=== PATIENT | female | born 1975 | race Asian ===

== ENCOUNTER 2020-07-23 10:43 | Inpatient (IN) | payer OTHER ==
[~2020-07-23] VITALS: Ht 160 cm; Wt 61.4 kg
[2020-07-23] MEDS ORDERED: HYDROmorphone 2 MG/ML SYRINGE IVP ONE (11:00)
[2020-07-23] MEDS ORDERED: RINGERS SOLUTION,LACTATED 1,000 ML IV ONE ×3 (11:21→11:50)
[2020-07-23] MEDS ORDERED: BUPIVACAINE HCL/PF 0.25% 30 ML VIAL ONE (11:26)
[2020-07-23] MEDS ORDERED: HYDROmorphone 2 MG/ML SYRINGE IVP PRN ×2 (11:30→12:00)
[2020-07-23] MEDS ORDERED: MEPERIDINE-PF 25 MG/ML VIAL IVP PRN (11:30)
[2020-07-23] MEDS ORDERED: FentaNYL CITRATE-PF 100 MCG/2 ML VIAL IVP PRN (11:30)
[2020-07-23] MEDS ORDERED: SODIUM CHLORIDE 0.9% 1,000 ML ONE (11:48)
[2020-07-23] MEDS ORDERED: MINERAL OIL/PETROLATUM,WHITE PF 3.5 GM OPHTHALMIC OINTMENT ONE (11:49)
[2020-07-23] MEDS ORDERED: MetroNIDAZOLE 500 MG/NACL 100 ML IV SCH ×2 (12:00)
[2020-07-23] MEDS ORDERED: CLINDAMYCIN 600 MG/D5% WATER 50 ML IV SCH (12:00)
[2020-07-23] MEDS ORDERED: SENNA 187 MG TABLET PO PRN ×2 (12:00)
[2020-07-23] MEDS ORDERED: BISACODYL 10 MG RECTAL RECTAL SUPPOSITORY PR PRN (12:00)
[2020-07-23] MEDS ORDERED: MORPHINE SULFATE 10 MG/ML SYRINGE IVP PRN (12:00)
[2020-07-23] MEDS ORDERED: DOCUSATE SODIUM 100 MG CAPSULE PO PRN (12:00)
[2020-07-23] MEDS ORDERED: DOCUSATE SODIUM 250 MG CAPSULE PO PRN (12:00)
[2020-07-23] MEDS ORDERED: HYDROCODONE/ACETAMINOPHEN 5-325 MG TABLET PO PRN ×3 (12:00)
[2020-07-23] MEDS ORDERED: CefoTEtan DISODIUM 1 GM in DEXTROSE 5%-WATER 50 ML IV SCH (12:00)
[2020-07-23] MEDS ORDERED: AMPICILLIN SODIUM/SULBACTAM NA 3 GM in SODIUM CHLORIDE 0.9% 100 ML IV SCH (12:00)
[2020-07-23] MEDS ORDERED: ACETAMINOPHEN 325 MG TABLET PO PRN ×3 (12:00→12:15)
[2020-07-23] MEDS ORDERED: MORPHINE SULFATE 2 MG/ML SYRINGE IVP PRN (12:00)
[2020-07-23] MEDS ORDERED: ONDANSETRON HCL 4 MG/2 ML VIAL IVP PRN ×2 (12:00→12:15)
[2020-07-23] MEDS: RINGERS SOLUTION,LACTATED 1,000 ML IV SCH ×2 (12:00→23:32)
[2020-07-23] MEDS ORDERED: ZOLPIDEM TARTRATE 5 MG TABLET PO PRN (12:00)
[2020-07-23 12:51] LABS: COVID AG,FIA SOURCE NASOPHARYNGEAL
[2020-07-23 15:14] VITALS: BP 143/78
[2020-07-23 15:40] VITALS: BP 134/80
[2020-07-23 15:45] VITALS: BP 137/76
[2020-07-23 17:29] VITALS: BP 124/83
[2020-07-23 20:00] VITALS: BP 129/75
[2020-07-23 23:26] VITALS: BP 126/70
[2020-07-23] MEDS: KETOROLAC TROMETHAMINE 15 MG/ML VIAL IVP SCH (23:31)
[2020-07-24 03:41] VITALS: BP 105/56
[2020-07-24] MEDS ORDERED: SUCCINYLCHOLINE CHLORIDE 20 MG/ML 10 ML VIAL IVP ONE (05:30)
[2020-07-24] MEDS ORDERED: FentaNYL CITRATE-PF 100 MCG/2 ML VIAL IVP ONE (05:30)
[2020-07-24] MEDS ORDERED: KETOROLAC TROMETHAMINE 60 MG/2 ML VIAL IM ONE (05:30)
[2020-07-24] MEDS ORDERED: PROPOFOL 1% 20 ML VIAL IVP ONE (05:30)
[2020-07-24] MEDS ORDERED: MIDAZOLAM HCL 2 MG/2 ML VIAL IVP ONE (05:30)
[2020-07-24] MEDS ORDERED: ONDANSETRON HCL 4 MG/2 ML VIAL IVP ONE (05:30)
[2020-07-24 06:11] LABS: BASOPHILS % (AUTO) 0.6 % (0.0-2.0); HEMATOCRIT 34.5 % (36-46); LYMPHOCYTES # (AUTO) 1.7 K/uL (1.0-4.8); LYMPHOCYTES % (AUTO) 20.4 % (22.0-44.0); MEAN CORPUSCULAR HEMOGLOBIN 31.7 pg (26.0-34.0); MEAN CORPUSCULAR HGB CONC 34.9 G/dL (31.0-37.0); MEAN CORPUSCULAR VOLUME 91 fL (80-100); MONOCYTES # (AUTO) 0.5 K/uL (0.1-1.0); MONOCYTES % (AUTO) 6.2 % (2.0-9.0); NEUTROPHILS % (AUTO) 71.8 % (40.0-70.0); PLATELET COUNT (AUTO) 179 K/uL (150-450); RED BLOOD CELL COUNT(AUTO) 3.79 MIL/uL (4.00-5.20); RED CELL DISTRIBUTION WIDTH 13.5 % (11.5-14.5)
[2020-07-24 06:51] LABS: ANION GAP 5 mmol/L (8-16); CARBON DIOXIDE 26 mmol/L (22-29); CHLORIDE 106 mmol/L (98-107); CREATININE 0.68 mg/dL (0.60-1.30); GLOMERULAR FILTR. RATE CALC > 60 mL/min (>60); GLUCOSE,RANDOM 106 mg/dL (70-110); POTASSIUM 3.6 mmol/L (3.5-5.1); SODIUM SERUM 137 mmol/L (136-145); UREA NITROGEN, BLOOD 9 mg/dL (7-18)
[2020-07-24 07:40] VITALS: BP 109/74
[2020-07-24] MEDS: KETOROLAC TROMETHAMINE 15 MG/ML VIAL IVP SCH (08:04)
[2020-07-24] MEDS ORDERED: ENOXAPARIN SODIUM 40 MG/0.4 ML PF SYRINGE SQ SCH (09:00)
[2020-07-24] MEDS ORDERED: ENOXAPARIN SODIUM 30 MG/0.3 ML PF SYRINGE SQ SCH (09:00)
[2020-07-24] MEDS ORDERED: OXYC-38 PO (09:09)
[2020-07-24] MEDS ORDERED: DOCU-275 PO (09:10)
== END 2020-07-24 09:30 | disposition home or self-care (01) | DRG 743 ==
LOC: EMS 10:43 → 6S 11:31 → 5S 12:44 → 6S 17:15 → 6N 07-24 08:15
PROVIDERS: ADMIT Obstetrics & Gynecology; ATTEND Obstetrics & Gynecology
PROC: 0UB04ZZ Excision of Right Ovary, Percutaneous Endoscopic Approach (ICD-10-PCS; 2020-07-23)
PROC: 0W9J4ZZ Drainage of Pelvic Cavity, Percutaneous Endoscopic Approach (ICD-10-PCS; principal; 2020-07-23 12:25)
DX: N83.511 Torsion of right ovary and ovarian pedicle (principal); N83.201 Unspecified ovarian cyst, right side; F17.210 Nicotine dependence, cigarettes, uncomplicated; Z03.818 Encounter for observation for suspected exposure to other biological agents ruled out
CPT/HCPCS: 86850; 86900; 86901; 87426; G0238; J0330; J1170; J1885; J2250; J2405; J2704; J3010; J3490; J7030; J7120